=== PATIENT | male | born 1995 | race Caucasian/White ===

== ENCOUNTER 2018-07-22 02:43 | Emergency (ER) | payer SELFPAY ==
[~2018-07-22] VITALS: Ht 175.3 cm; Wt 63.0 kg
[2018-07-22] MEDS ORDERED: SODIUM CHLORIDE 0.9% 1,000 ML IV ONE (03:12)
[2018-07-22 03:56] LABS: BASOPHILS % 0.3 % (0.0-2.0); EOSINOPHILS % 1.2 % (0.0-5.0); HEMATOCRIT. 39.4 % (42.0-52.0); HEMOGLOBIN. 14.1 g/dL (14.0-18.0); LYMPHOCYTES % 20.1 % (20.0-50.0); MEAN CORPUSCULAR HEMOGLOBIN 33.8 pg (28.0-32.0); MEAN CORPUSCULAR VOLUME 94.3 fL (80.0-94.0); MEAN PLATELET VOLUME 8.3 fl (7.4-10.4); MONOCYTES % 9.2 % (2.0-8.0); NEUTROPHILS % 69.2 % (40.0-76.0); PLATELET 162 x1000/uL (130-400); RED BLOOD CELL COUNT 4.18 mill/uL (4.7-6.1); RED CELL DISTRIBUTION WIDTH 12.4 % (11.6-14.6)
[2018-07-22 04:03] LABS: CHLORIDE 104 mEq/L (98-107); INR 1.1; PROTHROMBIN TIME 11.4 sec (9.1-11.1)
[2018-07-22 04:08] LABS: ETHANOL BLOOD < 10 mg/dL
[2018-07-22] MEDS ORDERED: POTASSIUM CHLORIDE 20MEQ TABLET SR PO ONE (04:30)
[2018-07-22] MEDS ORDERED: KETOROLAC 30MG/ML VIAL IV ONE (05:00)
[2018-07-22 05:15] VITALS: BP 134/77
== END 2018-07-22 05:10 | disposition left against medical advice (07) ==
LOC: ER 02:43
DX: R20.2 Paresthesia of skin (principal); E87.6 Hypokalemia; R79.89 Other specified abnormal findings of blood chemistry; E86.0 Dehydration; F14.10 Cocaine abuse, uncomplicated; F15.10 Other stimulant abuse, uncomplicated; F11.10 Opioid abuse, uncomplicated; F17.200 Nicotine dependence, unspecified, uncomplicated; J44.9 Chronic obstructive pulmonary disease, unspecified; Z88.8 Allergy status to other drugs, medicaments and biological substances
CPT/HCPCS: 36415; 71045; 80053; 83605; 83690; 83880; 84484; 85025; 85610; 93005; 96360; 99285; G0482; J7030